=== PATIENT | male | born 1965 | race Caucasian/White ===

== ENCOUNTER → 2016-09-17 | Outpatient (CLI) | payer OTHER ==
[~2016-09-17] MED LIST: CLR10 PO; CLX20 PO; IBUP-1050 PO
--- NOTE | 2016-09-18 05:56 | PAP/PSG TECHNICIAN REPORT ---
[facility] Inspector Structural Bonding Polysomnogram Report Study name: None Report date: 09/18/2016 Study date: 09/17/2016 Referring Physician: Delano MIRANDA M.D. Name: KAYY NEVES Interpreting Physician: Archie Miranda M.D. Date of : 1965 Inspector Structural Bonding: Stefany Hernández RPSGT. Sex: Male Age: 50 Study Type: PSG Weight: 255 lbs 17 in Height: 50 years, Height 6' 1" Neck Circum: BMI: 33.64 Medications: LOSARTAN 50 MG, FLONASE, PROCTOSOL 2.5% RECTAL CREAM, CITALOPRAM 20 MG, MELOXICAM 15 MG, LORATADINE 10 MG Patient History 50 yr-old male here for a baseline/split study. He has a history of snoring, witnessed apneas, and morning headaches. His [place] scale is 14. The test was started on room air. ETCO2 testing was not utilized during this study. Room 3 Parameters Monitored NPSG: E1-M2, E2-M1, Fp1-M2, Fp2-M1, F3-M2, F4-M2, F4-M1, C3-M2, C4-M2, C4-M1, O1-M2, O2-M2, O2-M1, T3-M2, T4-M1, P3-M2, P4-M1, CHIN1, CHIN2, HR, EKG, Legs, PFLOW, SNOR, FLOW, CFLOW, Tidal Volume, THOR, ABDO, SpO2, PLTH, CPRESS, ETCO2 Wave, ETCO2, pH Sleep Architecture Sleep Stages Time at Lights Off 10:37:11 PM STAGES Time (min.) TST (%) Time at Lights On 5:40:11 AM Wake 48.5 -- Total Recording Time (TRT) 423.00 min. N1 71.5 19 Total Sleep Period (TSP) 414.0 min. N2 239.5 64 Total Sleep Time (TST) 374.5min. N3 27.5 7 Awake Time 48.5 min. REM 36.0 10 Wake after Sleep Onset 39.5 min. Sleep Efficiency (SE) 89 % Sleep Onset Latency (CARLY) 9.0 min. Number of Stage 1 Shifts None Awakenings 26 Stage Changes 156 Number of REM periods 3 REM 36.0 10 REM Latency 232.5 min. NREM 338.5 90 Body Position Analysis Supine Right Left Side Prone Vertical Total Sleep Time (min.) 423.0 0.0 0.0 0.00 0.0 0.0 Total Sleep Time (%) 100% 0% 0% 0 0% N/A% Total Sleep Time REM (min.) 36.0 0.0 0.0 None 0.0 0.0 Total Sleep Time NREM (min.) 338.5 0.0 0.0 None 0.0 0.0 Intermittent Wake (min.) 48.5 0.0 0.0 None 0.0 0.0 Total Sleep Period (%) 100% None None None None None Arousals Myoclonus (PLM) * Events Count Index Events Count Index Spontaneous 47 8 Events Awake (PLMW) 48 59.4 Respiratory 21 3.4 Events Asleep w/ Arousal (PLMA) 46 7.4 PLM 46 7 Events Asleep w/o Arousal (PLMS) 420 67.3 Snoring 6 1 Total Asleep 466 74.7 Total 120 19 Total 514 73 Respiratory Analysis * CA OA MA CH H RERA Total Count 0 8 0 0 75 6 83 Index 0.0 1.3 0.0 0 12.0 1 14.3 Mean Duration 0.0 16.0 0.0 0.00 18.0 17.5 17.8 Longest Duration 0.0 20.3 0.0 0.00 0.0 18.9 42.3 Respiratory Event Summary Total Supine ~Supine Right Left Prone REM NREM Apneas Count 8 8 N/A N/A N/A N/A 7 1 Index 1.3 1 N/A N/A N/A N/A 12 0 Hypopneas (4% Desat) Count 75 75 N/A N/A N/A N/A 26 49 Index 12.0 12.0 N/A N/A N/A N/A 43.3 8.7 Apneas & All Hypopneas Count 83 83 N/A N/A N/A N/A 33 50 Index 13.3 13 N/A N/A N/A N/A 55.0 8.9 Respiratory Events (Director Of Rooms+All Hyp+RERA) Count 83 89 N/A N/A N/A N/A 33 50 Index 14.3 14 N/A N/A N/A N/A 55.0 9.9 Respiratory Related Arousal Count 21 89 N/A N/A N/A N/A 5 16 Index 3.4 3 N/A N/A N/A N/A 8 3 Snoring Analysis Supine Right Left Prone REM NREM Total Snore duration 16.5 min Snores count 895 N/A N/A N/A 55 840 895 Snore mean duration 1.1 Sec Snores index 143 N/A N/A N/A 91.7 148.9 143.4 TST with snoring (%) 4.4% Desaturation Event Summary: Minimum %SpO2 Event Count Mean/Min/Max Duration(sec.) Desaturation Index % Time In Bed > 90 105 22.8 / 7.8 / 59.0 16.3 91.6 86 - 90 10 15.9 / 6.3 / 28.8 18.8 7.6 81 - 85 0 N/A 0.0 0.8 76 - 80 0 N/A 0.0 0.1 71 - 75 0 N/A 0.0 0.0 66 - 70 0 N/A 0.0 0.0 61 - 65 0 N/A 0.0 0.0 56 - 60 0 N/A 0.0 0.0 51 - 55 0 N/A 0.0 0.0 < 50 0 N/A 0.0 0.0 Total REM NREM Awake <50% 0.0 min. 0.0 min. 0.0 min. 0.0 min. 51 - 60% 0.0 min. 0.0 min. 0.0 min. 0.0 min. 61 - 70% 0.0 min. 0.0 min. 0.0 min. 0.0 min. 71 - 80% 0.3 min. 0.3 min. 0.0 min. 0.0 min. 81 - 90% 35.1 min. 11.0 min. 22.8 min. 1.4 min. 91 - 100% 386.9 min. 24.7 min. 315.0 min. 47.1 min. Average 92 91 92 93 Minimum SpO2 79 79 81 86 Desaturation Event Index 15.3 60.0 12.2 3.7 # Desat. Events below 89% 57 29 28 0 Time(%) with Saturation below 89% 2.9 1.7 1.2 0.1 Time(min.) with Saturation below 89% 12.4 7.0 5.0 0.3 Time (mins) REM (mins) NREM (mins) % of TST SpO2 Below 90% 98 34 N64 5.1 SpO2 Below 88% 22 0 0 2 Heart Rate Analysis Min (bpm) Max (bpm) Average (bpm) Awake 52 90 68 NREM 51 90 66 REM 52 84 68 Overall 51 90 66 Supplemental O2 Values Minimum O2 level: None Value Start Time End Time Inspector Structural Bonding Comments Mr. Neves slept only in the supine position. No cardiac arrhythmias were noted. PLMs were noted. No bruxism noted. Snoring was noted and scored as a 2-3 on a scale of 1 through 5. (0=no snoring, 5=snoring loud enough to be heard through a closed door or down the [address] way). He did not meet specific Split-Night criteria during the diagnostic portion of this study. He did not wake up to use the restroom during the night. Mr. Neves stated that he slept about the same as usual. The final report will be interpreted and signed by a sleep physician. The completed physician report will then be placed in the patient medical record. Therapy (cm H2O) 0 TIB (min.) 423.0 TST (min.) 374.5 Sleep Onset (min.) 9.0 REM Onset From Sleep (min.) 232.5 Sleep Efficiency % 89 Wakefulness (%) 11 Wakefulness (min.) 48.5 NREM 1 (%) 19 NREM 1 (min.) 71.5 NREM 2 (%) 64 NREM 2 (min.) 239.5 NREM 3 (%) 7 NREM 3 (min.) 27.5 REM (%) 10 REM (min.) 36.0 # Arousals 120 Arousal Index 19 # Snore 895 Snore Index 143.4 AHI 13.3 AHI Supine 13 AHI Non-Supine N/A NREM AHI 8.9 REM AHI 55.0 RDI 14.3 # Obstructive Apnea 8 # Central Apnea 0 # Mixed Apnea 0 # Hypopneas 75 RERAs 6 Total Respiratory Events 89 Time Below SpO2 89% (min.) 12.0 Mean NREM SpO2 (%) 92 Mean REM SpO2 (%) 91 Mean Sleep SpO2 (%) 92 Min NREM SpO2 (%) 81 Min REM SpO2 (%) 79 Position Supine (min.) 423.0 Position Non-supine (min.) 0.0 LM Index Sleep 74.7 LM Index NREM 76.9 LM Index REM 53.3 Mean Heart Rate (bpm) 66 Min Heart Rate (bpm) 51
--- NOTE | 2016-09-26 07:15 | POLYSOMNOGRAPH REPORT ---
REFERRING PERSON: Dr. Emma Miranda. PRODUCT/INDUSTRY CONSULTANT: Stefany Hernández. Mr. Schwartz is a 50-year-old male sent for a baseline split night sleep study. He has a history of snoring, witnessed apneas and morning headaches. His [place] sleepiness scale score on the evening of this study is 14. BMI is 33.64. Following the technical and digital specifications of the [place] [employer] (AASM) a standard diagnostic polysomnogram was performed monitoring EEG, EOG, EMG (chin and leg deviations), oxygen saturation, body position, digital video, respiratory effort and airflow. The sleep Stage and event scoring was based on the AASM Manual for the Scoring of Sleep and Associated Events 2007 edition. Apneas are defined as a drop in the peak thermal sensor excursion by >90% of baseline for at least 10 seconds. Hypopneas were scored using the 4% oxygen desaturation rule (4A-[employer]) and a decrease in the nasal pressure excursions by >30% of baseline for at least 10 seconds. Respiratory effort-related arousal (RERA's) is defined as a sequence of breaths lasting at least 10 seconds characterized by increasing respiratory effort or flattening of the nasal pressure waveform leading to an arousal from sleep when the sequence of breaths does not meet criteria for an apnea or hypopnea. Apnea Hypopnea index (AHI) is defined as the number of apneas and hypopneas occurring in an hour of sleep. Respiratory disturbance index (RDI) is defined as the number of apneas, hypopneas, and RERA's occurring in an hour of sleep. Mr. Schwartz's total sleep period time was 414 minutes. Total sleep time was 374.5 minutes. Sleep efficiency was 89%. Latency to sleep onset was 9 minutes with wake after sleep onset of 39.5 minutes. Total non-REM sleep time was 338.5 minutes. He spent 19% of that time in N1 sleep, 64% in N2 sleep and 7% in N3 sleep. REM latency was 232.5 minutes. Total REM sleep time was 36 minutes or 10% of total sleep time. There were 120 arousals from sleep on this study. 47 of these arousals were spontaneous, 21 were due to respiratory events, 46 due to periodic limb movements of sleep and 6 were due to snoring. There were 466 periodic limb movements noted on this test. Limb movement index was 74.7. Limb movement with arousal index was 7.4. There were no central, 8 obstructive and no mixed apneas on this test. There were 75 hypopneas and 6 RERA. Apnea-hypopnea index was 13.3 consistent with mild sleep apnea. 895 snoring events were recorded. Total sleep time with snoring was 4.4%. Mean saturation was 92% with desaturations to 79%. Saturations were less than 89% for 12.4 minutes of recorded time. There was no cardiac ectopy noted on this study. Heart rates ranged from a low of 51 beats per minute to a high of 90 beats per minute on this test. IMPRESSION AND PLAN: 50-year-old male with evidence of mild sleep apnea and mild nocturnal hypoxemia on this sleep study. 1. This patient would likely benefit from positive airway pressure therapy. He should return to the sleep lab for a full night titration and then based on those results be started on equipment at home. A download from his machine should be reviewed in 1 month both to check compliance as well as AHI and further pressure adjustments can occur at that time. 2. Alternatively, this patient could be started on auto titrating CPAP with pressures of 5-15 cm. A download from his machine can be reviewed in 1 month and then the patient's set to optimal pressure. 3. Should this patient be unwilling or unable to tolerate CPAP therapy, he should be referred to ear, nose and throat or oral surgery/dental medicine to discuss alternative treatments for sleep disorder breathing.
== END | disposition home or self-care (01) ==
LOC: C.NEUR 21:00
PROVIDERS: ATTEND Family Medicine
DX: G47.10 Hypersomnia, unspecified (principal); R06.83 Snoring; G47.30 Sleep apnea, unspecified